=== PATIENT | female | born 1995 | race Caucasian/White ===

== ENCOUNTER 2016-08-24 23:01 | Emergency (ER) | payer SELFPAY ==
--- NOTE | 2016-08-25 01:01 | ED ORDER SUMMARY ---
..... Patient: TRISTIN WESLEY OrderSheet [facility] VisitID: [id number] [address] [place] [address] 21y, F Registration Date/Time: 08/24/2016 ORDER SHEET Weight: 90.7 kg (stated) Allergies: Ibuprofen GENERAL ORDERS: UA-Culture if indicated Urgent (23:27 08/24/2016 SBalde R.N. per protocol) (Ack 23:27 AMcQuoid ER Tech1) (1:09 SBalde R.N.) Urine Urgent (23:08/24/2016 SBalde R.N. per protocol) (Ack 23:27 AMcQuoid ER Tech1) (1:09 SBalde R.N.) Urine Drug Screen Urgent (:08/24/2016 SBalde R.N. per protocol) (Ack 23:28 AMcQuoid ER Tech1) (1:09 SBalde R.N.) Blood Culture (No) (N/A) Urgent (23:39 08/24/2016 Karen LEE) (Ack 23:41 AMcQuoid ER Tech1) (1:09 SBalde R.N.) CBC w Diff Urgent (23:40 08/24/2016 Karen LEE) (Ack 23:41 AMcQuoid ER Tech1) (0:00 AMcQuoid ER Tech1) CMP Urgent (23:40 08/24/2016 Karen LEE) (Ack 23:41 AMcQuoid ER Tech1) (0:00 AMcQuoid ER Tech1) Amylase Urgent (23:40 08/24/2016 Karen LEE) (Ack 23:41 AMcQuoid ER Tech1) (0:00 AMcQuoid ER Tech1) Lipase Urgent (23:40 08/24/2016 Karen LEE) (Ack 23:41 AMcQuoid ER Tech1) (0:00 AMcQuoid ER Tech1) Lactate, Serum Urgent (23:40 08/24/2016 Karen LEE) (Ack 23:41 AMcQuoid ER Tech1) (0:00 AMcQuoid ER Tech1) MEDICATION ORDERS: Levofloxacin PO 750 mg (NOW) (00:59 08/25/2016 Karen LEE) (1:09 Dyan Brady) IV FLUIDS: IV NS : initial bolus 1000 mL (1000 mL/hr), then 150 mL/hr for 4h (NOW); Urgent (23:39 08/24/2016 Karen LEE) (0:05 Dyan R.NMingo) ORDER SHEET NOTES: [Electronically signed by Xiomara Delacruz R.N. (01:16 08/25/2016)] [Electronically signed by Anthony Velez MD (09:23 08/25/2016)] [Electronically locked/signed by Xiomara Delacruz R.N. (01:16 08/25/2016)]
--- NOTE | 2016-08-25 01:01 | ED ORDER SUMMARY ---
..... Patient: TRISTIN WESLEY OrderSheet [facility] VisitID: [id number] [address] [place] [address] 21y, F Registration Date/Time: 08/24/2016 ORDER SHEET Weight: 90.7 kg (stated) Allergies: Ibuprofen GENERAL ORDERS: UA-Culture if indicated Urgent (23:27 08/24/2016 SBalde R.N. per protocol) (Ack 23:27 AMcQuoid ER Tech1) (1:09 SBalde R.N.) Urine Urgent (23:08/24/2016 SBalde R.N. per protocol) (Ack 23:27 AMcQuoid ER Tech1) (1:09 SBalde R.N.) Urine Drug Screen Urgent (:08/24/2016 SBalde R.N. per protocol) (Ack 23:28 AMcQuoid ER Tech1) (1:09 SBalde R.N.) Blood Culture (No) (N/A) Urgent (23:39 08/24/2016 Karen LEE) (Ack 23:41 AMcQuoid ER Tech1) (1:09 SBalde R.N.) CBC w Diff Urgent (23:40 08/24/2016 Karen LEE) (Ack 23:41 AMcQuoid ER Tech1) (0:00 AMcQuoid ER Tech1) CMP Urgent (23:40 08/24/2016 Karen LEE) (Ack 23:41 AMcQuoid ER Tech1) (0:00 AMcQuoid ER Tech1) Amylase Urgent (23:40 08/24/2016 Karen LEE) (Ack 23:41 AMcQuoid ER Tech1) (0:00 AMcQuoid ER Tech1) Lipase Urgent (23:40 08/24/2016 Karen LEE) (Ack 23:41 AMcQuoid ER Tech1) (0:00 AMcQuoid ER Tech1) Lactate, Serum Urgent (23:40 08/24/2016 Karen LEE) (Ack 23:41 AMcQuoid ER Tech1) (0:00 AMcQuoid ER Tech1) MEDICATION ORDERS: Levofloxacin PO 750 mg (NOW) (00:59 08/25/2016 Karen LEE) (1:09 Dyan Brady) IV FLUIDS: IV NS : initial bolus 1000 mL (1000 mL/hr), then 150 mL/hr for 4h (NOW); Urgent (23:39 08/24/2016 Karen LEE) (0:05 Dyan R.NMingo) ORDER SHEET NOTES: [Electronically signed by Xiomara Delacruz R.N. (01:16 08/25/2016)] [Electronically signed by Anthony Velez MD (09:23 08/25/2016)] [Electronically locked/signed by Xiomara Delacruz R.N. (01:16 08/25/2016)]
--- NOTE | 2016-08-25 01:01 | ED CLINICAL REPORT ---
Clinical Report - Physicians/Mid Levels [facility] [address] [place] [address] 08/24/2016 23:03 Patient: TRISTIN WESLEY Time Seen: 23:40. Arrived- By private vehicle. Historian- patient. HISTORY OF PRESENT ILLNESS Chief Complaint: FEVER. This started today and is still present. Fever was gradual in onset and has been intermittent. The patient has had muscle aches. No chest pain, dyspnea or cough. Additional history - she reports that today when she urinated she saw blood in the urine. REVIEW OF SYSTEMS The patient has had fever, chills, nausea and mild vomiting. No blood-tinged emesis or coffee-grounds emesis and experienced sweats. No calf pain, chest pain, cough, difficulty breathing or pedal edema. No palpitations. The patient has had urinary problems (blood in her urine today). She has had mild mid back pain (Left sided). All systems otherwise negative, except as recorded above. PAST HISTORY Problems: Self-Mutilation. Substance Abuse. Additional Surgeries: Left Leg Sx. Medications: Tylenol Oral. Allergies: Ibuprofen. (headache and body hurts, can take other NSAIDS). SOCIAL HISTORY Current every day heavy tobacco smoker (cigarette)- less than 1 pack per day. History of drug use. Is a recovering addict. No alcohol use. FAMILY HISTORY Denies family medical history. ADDITIONAL NOTES The nursing notes have been reviewed. PHYSICAL EXAM Vital Signs: 08/24/2016 23:12 BP: 139/82. HR: 78. RR: 18. O2 saturation: 100%. Temp: 102.1 F. Have been reviewed. Appearance: Alert. Eyes: Pupils equal, round and reactive to light. ENT: Pharynx normal. Uvula midline. Neck: Normal inspection. Neck supple. CVS: Normal heart rate and rhythm. Heart sounds normal. Respiratory: No respiratory distress. Breath sounds normal. Abdomen: Soft and nontender. Bowel sounds normal. No organomegaly. No mass. Obese. Back: Mild tenderness in the left costovertebral angle. Skin: Skin warm and dry. Normal skin color. Normal skin turgor. Extremities: Extremities exhibit normal ROM. LABS, X-RAYS, AND EKG Laboratory Tests: UA-Culture if indicated: (JOSH: 08/24/2016 00:13) ( [facility] 08/25/2016 00:33) Final results Test Result Flag Units (Reference) URINE COLOR YELLOW URINE APPEARANCE CLEAR URINE GLUCOSE NEGATIVE (NEGATIVE) URINE BILIRUBIN NEGATIVE (NEGATIVE) URINE KETONE NEGATIVE (NEGATIVE) URINE SPECIFIC GRAVITY 1.025 (1.010-1.030) URINE PH 6.0 (5.0-8.0) URINE PROTEIN TRACE (NEGATIVE) URINE UROBILINOGEN 0.2 EU/dL (0.2-1.0) URINE NITRITE NEGATIVE (NEGATIVE) URINE BLOOD 1+ (NEGATIVE) URINE LEUK ESTERASE POSITIVE (NEGATIVE) URINE RBC 1-3 rbc/hpf (0-1) URINE WBC 10-15 wbc/hpf (0-1) URINE EPITHELIAL CELLS 10-15 EPI/hpf (0-5) URINE BACTERIA FEW (1+) (NONE SEEN) URINE COMMENT CULTURE INDICATED URINE CULTURES ARE SET-UP BASED ON THE FOLLOWING CRITERIA:POSITIVE NITRITEPOSITIVE LEUKOCYTE ESTERASEGREATER THAN 10 WHITE BLOOD CELLSMODERATE (2+) OR GREATER BACTERIA Urine: (JOSH: 08/24/2016 00:13) ( [facility] 08/25/2016 00:28) Final results Test Result Flag Units (Reference) URINE NEGATIVE CBC w Diff: (JOSH: 08/24/2016 23:57) ( [facility] 08/25/2016 00:23) Final results Test Result Flag Units (Reference) WHITE BLOOD COUNT 13.9 H K/uL (4.5-11.5) RED BLOOD COUNT 5.16 M/uL (4.00-5.20) HEMOGLOBIN 12.3 gm/dL (12.0-16.0) HEMATOCRIT 38.3 % (36.0-46.0) MEAN CELL VOLUME 74 L fL (80-100) MEAN CORPUSCULAR HGB 24 L pg (26-34) MEAN CORPUSCULAR HGB CONC 32 g/dL (31-37) RED CELL DISTRIBUTION WIDTH 16.1 H % (11.6-14.8) PLATELET COUNT 402 H K/uL (150-400) NEUTROPHIL % 72.6 % (50-75) LYMPH % 15.4 L % (25-40) MONO % 11.5 % (3-14) EOSINOPHIL % 0.2 % (0-4) BASOPHIL % 0.3 % (0-2) Lactate, Serum: (JOSH: 08/24/2016 23:57) ( MsgRcvd 08/25/2016 00:36) Final results Test Result Flag Units (Reference) LACTIC ACID 0.8 mmol/L (0.4-2.0) CMP: (JOSH: 08/24/2016 23:57) ( MsgRcvd 08/25/2016 00:36) Final results Test Result Flag Units (Reference) GLUCOSE 101 mg/dL (70-110) BUN 11 mg/dL (7-18) CREATININE 0.9 mg/dL (0.6-1.3) Estimated GFR >60 mL/min Estimated GFR- >60 mL/min Note: Persistent reduction over 3 months in eGFR<60 mL/min/1.73 m2 defines CKD. Patients with eGFR values>=60 mL/min/1.73 m2 may also have CKD if evidence ofpersistent proteinuria. Additional information may be foundat www.kidney.org. SODIUM 138 mmol/L (136-145) POTASSIUM 3.6 mmol/L (3.5-5.1) CHLORIDE 101 mmol/L (98-107) CARBON DIOXIDE 25 mmol/L (21-32) CALCIUM 8.7 mg/dL (8.5-10.1) TOTAL PROTEIN 7.8 g/dL (6.4-8.2) ALBUMIN 3.6 g/dL (3.3-5.0) BILIRUBIN, TOTAL 0.3 mg/dL (0.0-1.0) ALKALINE PHOSPHATASE 101 U/L (46-116) AST (SGOT) 18 U/L (15-37) ALT (SGPT) 24 U/L (12-78) LIPASE 85 U/L (73-393) AMYLASE 33 U/L (25-115) . PROGRESS AND PROCEDURES Course of Care: Patient is stable. Patient/family counseled. Old medical records ordered. Old records unavailable. Disposition: Discharged. Condition: stable. CLINICAL IMPRESSION Acute pyelonephritis INSTRUCTIONS No driving or operating machinery while taking medication. Drink plenty of fluids. Warnings: Further evaluation is necessary. GENERAL WARNINGS: Return or contact your physician immediately if your condition worsens or changes unexpectedly, if not improving as expected, or if other problems arise. Prescription Medications: Zofran 4 mg: Take 1 orally every six hours as needed for nausea/vomiting. Dispense ten (10). No refills. Substitution is permissible. Ultram 50 mg: take 1-2 orally every 6 hours as needed for pain. Dispense fifteen (15). No refills. Substitution is permissible. Cipro 500 mg: take 1 tab orally every 12 hours for 10 days. No refills. Substitution is permissible. (18 pills to finish the course started in the ER) OTC Medications: Acetaminophen (available over the counter): take according to label instructions. Understanding of the discharge instructions verbalized by patient. Follow-up with: [facility], , , [address], , [place], [address] Follow up tomorrow. Call for an appointment. (Electronically signed by Anthony Velez MD 08/25/2016 9:23)
--- NOTE | 2016-08-25 01:01 | ED CLINICAL REPORT ---
Clinical Report - Physicians/Mid Levels [facility] [address] [place] [address] 08/24/2016 23:03 Patient: TRISTIN WESLEY Time Seen: 23:40. Arrived- By private vehicle. Historian- patient. HISTORY OF PRESENT ILLNESS Chief Complaint: FEVER. This started today and is still present. Fever was gradual in onset and has been intermittent. The patient has had muscle aches. No chest pain, dyspnea or cough. Additional history - she reports that today when she urinated she saw blood in the urine. REVIEW OF SYSTEMS The patient has had fever, chills, nausea and mild vomiting. No blood-tinged emesis or coffee-grounds emesis and experienced sweats. No calf pain, chest pain, cough, difficulty breathing or pedal edema. No palpitations. The patient has had urinary problems (blood in her urine today). She has had mild mid back pain (Left sided). All systems otherwise negative, except as recorded above. PAST HISTORY Problems: Self-Mutilation. Substance Abuse. Additional Surgeries: Left Leg Sx. Medications: Tylenol Oral. Allergies: Ibuprofen. (headache and body hurts, can take other NSAIDS). SOCIAL HISTORY Current every day heavy tobacco smoker (cigarette)- less than 1 pack per day. History of drug use. Is a recovering addict. No alcohol use. FAMILY HISTORY Denies family medical history. ADDITIONAL NOTES The nursing notes have been reviewed. PHYSICAL EXAM Vital Signs: 08/24/2016 23:12 BP: 139/82. HR: 78. RR: 18. O2 saturation: 100%. Temp: 102.1 F. Have been reviewed. Appearance: Alert. Eyes: Pupils equal, round and reactive to light. ENT: Pharynx normal. Uvula midline. Neck: Normal inspection. Neck supple. CVS: Normal heart rate and rhythm. Heart sounds normal. Respiratory: No respiratory distress. Breath sounds normal. Abdomen: Soft and nontender. Bowel sounds normal. No organomegaly. No mass. Obese. Back: Mild tenderness in the left costovertebral angle. Skin: Skin warm and dry. Normal skin color. Normal skin turgor. Extremities: Extremities exhibit normal ROM. LABS, X-RAYS, AND EKG Laboratory Tests: UA-Culture if indicated: (JOSH: 08/24/2016 00:13) ( [facility] 08/25/2016 00:33) Final results Test Result Flag Units (Reference) URINE COLOR YELLOW URINE APPEARANCE CLEAR URINE GLUCOSE NEGATIVE (NEGATIVE) URINE BILIRUBIN NEGATIVE (NEGATIVE) URINE KETONE NEGATIVE (NEGATIVE) URINE SPECIFIC GRAVITY 1.025 (1.010-1.030) URINE PH 6.0 (5.0-8.0) URINE PROTEIN TRACE (NEGATIVE) URINE UROBILINOGEN 0.2 EU/dL (0.2-1.0) URINE NITRITE NEGATIVE (NEGATIVE) URINE BLOOD 1+ (NEGATIVE) URINE LEUK ESTERASE POSITIVE (NEGATIVE) URINE RBC 1-3 rbc/hpf (0-1) URINE WBC 10-15 wbc/hpf (0-1) URINE EPITHELIAL CELLS 10-15 EPI/hpf (0-5) URINE BACTERIA FEW (1+) (NONE SEEN) URINE COMMENT CULTURE INDICATED URINE CULTURES ARE SET-UP BASED ON THE FOLLOWING CRITERIA:POSITIVE NITRITEPOSITIVE LEUKOCYTE ESTERASEGREATER THAN 10 WHITE BLOOD CELLSMODERATE (2+) OR GREATER BACTERIA Urine: (JOSH: 08/24/2016 00:13) ( [facility] 08/25/2016 00:28) Final results Test Result Flag Units (Reference) URINE NEGATIVE CBC w Diff: (JOSH: 08/24/2016 23:57) ( [facility] 08/25/2016 00:23) Final results Test Result Flag Units (Reference) WHITE BLOOD COUNT 13.9 H K/uL (4.5-11.5) RED BLOOD COUNT 5.16 M/uL (4.00-5.20) HEMOGLOBIN 12.3 gm/dL (12.0-16.0) HEMATOCRIT 38.3 % (36.0-46.0) MEAN CELL VOLUME 74 L fL (80-100) MEAN CORPUSCULAR HGB 24 L pg (26-34) MEAN CORPUSCULAR HGB CONC 32 g/dL (31-37) RED CELL DISTRIBUTION WIDTH 16.1 H % (11.6-14.8) PLATELET COUNT 402 H K/uL (150-400) NEUTROPHIL % 72.6 % (50-75) LYMPH % 15.4 L % (25-40) MONO % 11.5 % (3-14) EOSINOPHIL % 0.2 % (0-4) BASOPHIL % 0.3 % (0-2) Lactate, Serum: (JOSH: 08/24/2016 23:57) ( MsgRcvd 08/25/2016 00:36) Final results Test Result Flag Units (Reference) LACTIC ACID 0.8 mmol/L (0.4-2.0) CMP: (JOSH: 08/24/2016 23:57) ( MsgRcvd 08/25/2016 00:36) Final results Test Result Flag Units (Reference) GLUCOSE 101 mg/dL (70-110) BUN 11 mg/dL (7-18) CREATININE 0.9 mg/dL (0.6-1.3) Estimated GFR >60 mL/min Estimated GFR- >60 mL/min Note: Persistent reduction over 3 months in eGFR<60 mL/min/1.73 m2 defines CKD. Patients with eGFR values>=60 mL/min/1.73 m2 may also have CKD if evidence ofpersistent proteinuria. Additional information may be foundat www.kidney.org. SODIUM 138 mmol/L (136-145) POTASSIUM 3.6 mmol/L (3.5-5.1) CHLORIDE 101 mmol/L (98-107) CARBON DIOXIDE 25 mmol/L (21-32) CALCIUM 8.7 mg/dL (8.5-10.1) TOTAL PROTEIN 7.8 g/dL (6.4-8.2) ALBUMIN 3.6 g/dL (3.3-5.0) BILIRUBIN, TOTAL 0.3 mg/dL (0.0-1.0) ALKALINE PHOSPHATASE 101 U/L (46-116) AST (SGOT) 18 U/L (15-37) ALT (SGPT) 24 U/L (12-78) LIPASE 85 U/L (73-393) AMYLASE 33 U/L (25-115) . PROGRESS AND PROCEDURES Course of Care: Patient is stable. Patient/family counseled. Old medical records ordered. Old records unavailable. Disposition: Discharged. Condition: stable. CLINICAL IMPRESSION Acute pyelonephritis INSTRUCTIONS No driving or operating machinery while taking medication. Drink plenty of fluids. Warnings: Further evaluation is necessary. GENERAL WARNINGS: Return or contact your physician immediately if your condition worsens or changes unexpectedly, if not improving as expected, or if other problems arise. Prescription Medications: Zofran 4 mg: Take 1 orally every six hours as needed for nausea/vomiting. Dispense ten (10). No refills. Substitution is permissible. Ultram 50 mg: take 1-2 orally every 6 hours as needed for pain. Dispense fifteen (15). No refills. Substitution is permissible. Cipro 500 mg: take 1 tab orally every 12 hours for 10 days. No refills. Substitution is permissible. (18 pills to finish the course started in the ER) OTC Medications: Acetaminophen (available over the counter): take according to label instructions. Understanding of the discharge instructions verbalized by patient. Follow-up with: [facility], , , [address], , [place], [address] Follow up tomorrow. Call for an appointment. (Electronically signed by Anthony Velez MD 08/25/2016 9:23)
--- NOTE | 2016-08-25 01:01 | ED NURSING NOTES ---
Clinical Report - Nurses [facility] [address] [place] [address] 08/24/2016 23:03 Patient: TRISTIN WESLEY TRIAGE Triage time 23:13 Aug 24 2016. Acuity: LEVEL 3. Chief Complaint: PAINFUL URINATION. Alert. No acute distress. --23:26 Xiomara Delacruz R.N. 23:12 08/24/16. BP: 139/82. HR: 78. RR: 18. O2 saturation: 100%. Temp: 102.1 F. Pain level now 01/07. --23:26 Xiomaar Delacruz R.N. Weight: 90.7 kg stated. Height/Length: 64 inches Per Patient. BMI: 34.3. --23:12 Xiomara Delacruz R.N. Medications Tylenol Oral. --23:15 Xiomara Delacruz R.N. Medication/allergy information source: the patient. --23:26 Xiomara Delacruz R.N. Allergies Ibuprofen. (headache and body hurts, can take other NSAIDS) --23:16 Xiomara Delacruz R.N. History Arrived by private vehicle. Historian: patient. Primary physician (PROV). ( Pt is currently A0. Couple days of "overall muscle body aches, peeing blood x1 in 24 hours, nausea, some vomiting, no appetite, taking Tylenol PRN. Pt is febrile. Pt is concerned if she may had a miscarriage or just sick.). Onset. ("couple days"). She has had hematuria. Treatment [employer]: Took Tylenol. PAST MEDICAL HX: Last normal menstrual period- April 2016. 3. Para 2. Sexual history - sexually active. No contraception. Currently . SOCIAL HX: Heavy tobacco smoker (cigarette)- less than 1 pack per day. Alcohol use. (last drink was 5-6 months ago). 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 (clean for 4 years). FALL RISK ASSESSMENT: Fall risk assessment completed. No fall risk identified. NUTRITIONAL RISK ASSESSMENT: The nutritional risk assessment revealed no deficiencies. FUNCTIONAL ASSESSMENT: Functional assessment: no impairments noted. LEARNING NEEDS ASSESSMENT: The learning needs assessment revealed no barriers. SKIN INTEGRITY ASSESSMENT: Skin integrity risk assessment completed. No skin integrity risk identified. --23:26 Xiomara Delacruz R.N. PROBLEMS: Self-Mutilation. Substance Abuse. --23:20 Xiomara Delacruz R.N. ADDITIONAL SURGERIES: Left Leg Sx. --23:17 Xiomara Delacruz R.N. Interventions ID band on patient. To room. --23:26 Xiomara Delacruz R.N. NURSING PROGRESS NOTES 00:02 08/25/2016 Site #1 started via IV in the right antecubital space with an 18g angiocath, with aseptic technique and good blood return; one attempt. Blood drawn: rainbow set and cultures x1. Labeled in the presence of the patient and sent to the lab. Saline lock flushed (Lactate also.). --00:02 Xiomara Delacruz R.N. ( pt encouraged twice to use the bathroom.). --00:02 Xiomara Delacruz R.N. 00:04 08/25/2016 Started bag #1 1000 mL IV Fluids IV NS (Saline); at 1000 mL/hr over 1 hour(s) via site #1. Completed per protocol. --00:05 Xiomara Delacruz R.N. Clean catch urine collected; sample sent to lab for urinalysis. Specimen labeled in the presence of the patient. --00:30 Xiomara Delacruz R.N. Patient gowned. Reassurance given. Call light placed in reach. Side rails up x 1. Bed placed in lowest position. Brakes of bed on. ( Friend at bedside. Pt has been told that only 1 person at a time in the ER.). --00:31 Xiomara Delacruz R.N. ( Provider at bedside.). --00:56 Xiomara Delacruz R.N. 01:09 08/25/2016 Levofloxacin PO 750 mg given. Allergies verified and confirmed 5 rights. --01:09 Xiomara Delacruz R.N. ( Pt informed that she has Pyonephritis. Discussed hydration and ABX. Tylenol and nausea medicine. Pt verbalizes an understanding.). --01:11 Xiomara Delacruz R.N. 01:11 08/25/16. BP: 139/82. HR: 96. RR: 18. O2 saturation: 100%. --01:12 Xiomara Delacruz R.N. DISPOSITION / DISCHARGE Departure time: 01:Aug 25 2016. --01:13 Xiomara Delacruz R.N. 01:12 08/25/16. BP: 139/82. HR: 96. RR: 18. O2 saturation: 100%. Temp: 101.9 F. Pain level now 08/07. --01:13 Xiomara Delacruz R.N. Condition at departure: improved and stable. No learning barriers present. Discharge instructions provided and reviewed with the patient. Reviewed medication(s). Patient verbalized understanding. Written instructions provided in Turkmen. The patient was discharged by the physician. She was discharged home. She left the Emergency Department ambulatory and via private vehicle. Patient driving. --01:16 Xiomara Delacruz R.N. 01:16 08/25/2016 Site #1 removed upon discharge. Bandage applied. --01:16 Xiomara Delacruz R.N. Locked/Released at 08/25/2016 1:16 by Xiomara Delacruz R.N.
--- NOTE | 2016-08-25 09:24 | ED DISCHARGE INSTRUCTIONS ---
Patient: TRISTIN WESLEY General Instructions [facility] VisitID: [id number] [address] [place] [address] 21y, F Registration Date/Time: 08/24/2016 Acute pyelonephritis INSTRUCTIONS No driving or operating machinery while taking medication. Drink plenty of fluids. Warnings: Further evaluation is necessary. GENERAL WARNINGS: Return or contact your physician immediately if your condition worsens or changes unexpectedly, if not improving as expected, or if other problems arise. Prescription Medications: Zofran 4 mg: Take 1 orally every six hours as needed for nausea/vomiting. Dispense ten (10). No refills. Substitution is permissible. Ultram 50 mg: take 1-2 orally every 6 hours as needed for pain. Dispense fifteen (15). No refills. Substitution is permissible. Cipro 500 mg: take 1 tab orally every 12 hours for 10 days. No refills. Substitution is permissible. (18 pills to finish the course started in the ER) OTC Medications: Acetaminophen (available over the counter): take according to label instructions. Understanding of the discharge instructions verbalized by patient. Follow-up with: [facility], , , [address], [place], [address] Follow up tomorrow. Call for an appointment. ADDITIONAL INFORMATION Kidney Infection [Adult, Female] An infection of the kidney is also called "pyelonephritis". It usually starts as a bladder infection ("cystitis") which spreads to the kidneys. Pyelonephritis is more serious than a bladder infection. It can cause severe illness if not treated properly. The usual symptoms include an aching pain in the back, side or lower abdomen. Other symptoms may include fever, chills, nausea, vomiting, an urge to urinate and a burning sensation when passing urine. Home Care: Stay home from work or school. Rest in bed until your fever breaks and you are feeling better. Drink lots of fluid (at least 6-8 glasses a day, unless you must restrict fluids for other medical reasons). This will force the medicine into your urinary system and flush the bacteria out of your body. Avoid sexual intercourse until you have finished all of your medicine and your symptoms have gone away. Avoid caffeine, alcohol and spicy foods which may irritate the kidney and bladder. You may use acetaminophen (Tylenol) or ibuprofen (Motrin, Advil) to control pain, unless another pain medicine was prescribed. [NOTE: If you have chronic liver or kidney disease or ever had a stomach ulcer or GI bleeding, talk with your doctor before using these medicines.] Follow Up with your doctor or as advised by our staff for a repeat urine test in 10 days. This will ensure that your infection is fully cleared. [NOTE: If you had an X-ray or CT scan, it will be reviewed by a specialist. You will be notified of any new findings that may affect your care.] Get Prompt Medical Attention if any of the following occur: Fever over 100.4F (38.0C) after 48 hours of treatment No improvement by the third day of treatment Increasing back or abdominal pain Repeated vomiting or inability to take oral medicine Weakness, dizziness or fainting Ondansetron Oral disintegrating tablet What is this medicine? ONDANSETRON (on MEI se roly) is used to treat nausea and vomiting caused by chemotherapy. It is also used to prevent or treat nausea and vomiting after surgery. How should I use this medicine? These tablets are made to dissolve in the mouth. Do not try to push the tablet through the foil backing. With dry hands, peel away the foil backing and gently remove the tablet. Place the tablet in the mouth and allow it to dissolve, then swallow. While you may take these tablets with water, it is not necessary to do so. Talk to your live ammunition inspector regarding the use of this medicine in children. Special care may be needed. What side effects may I notice from receiving this medicine? Side effects that you should report to your doctor or health senior care assistant as soon as possible: allergic reactions like skin rash, itching or hives, swelling of the face, lips, or tongue breathing problems dizziness fast or irregular heartbeat feeling faint or lightheaded, falls fever and chills swelling of the hands and feet tightness in the chest Side effects that usually do not require medical attention (report to your doctor or health senior care assistant if they continue or are bothersome): constipation or diarrhea headache What may interact with this medicine? Do not take this medicine with any of the following medications: -apomorphine -cisapride -dofetilide -dronedarone -pimozide -thioridazine -ziprasidone This medicine may also interact with the following medications: -carbamazepine -phenytoin -rifampicin -tramadol -other medicines that prolong the QT interval (cause an abnormal heart rhythm) What if I miss a dose? If you miss a dose, take it as soon as you can. If it is almost time for your next dose, take only that dose. Do not take double or extra doses. Where should I keep my medicine? Keep out of the reach of children. Store between 2 and 30 degrees C (36 and 86 degrees F). Throw away any unused medicine after the expiration date. What should I tell my health care provider before I take this medicine? They need to know if you have any of these conditions: heart disease history of irregular heartbeat liver disease low levels of magnesium or potassium in the blood an unusual or allergic reaction to ondansetron, granisetron, other medicines, foods, dyes, or preservatives or trying to get breast-feeding What should I watch for while using this medicine? Check with your doctor or health senior care assistant as soon as you can if you have any sign of an allergic reaction. Tramadol Hydrochloride Oral tablet What is this medicine? TRAMADOL (TRA ma dole) is a pain reliever. It is used to treat moderate to severe pain in adults. How should I use this medicine? Take this medicine by mouth with a full glass of water. Follow the directions on the prescription label. If the medicine upsets your stomach, take it with food or milk. Do not take more medicine than you are told to take. Talk to your live ammunition inspector regarding the use of this medicine in children. Special care may be needed. What side effects may I notice from receiving this medicine? Side effects that you should report to your doctor or health senior care assistant as soon as possible: allergic reactions like skin rash, itching or hives, swelling of the face, lips, or tongue breathing difficulties, wheezing confusion itching light headedness or fainting spells redness, blistering, peeling or loosening of the skin, including inside the mouth seizures Side effects that usually do not require medical attention (report to your doctor or health senior care assistant if they continue or are bothersome): constipation dizziness drowsiness headache nausea, vomiting What may interact with this medicine? Do not take this medicine with any of the following medications: MAOIs like Carbex, Eldepryl, Marplan, Nardil, and Parnate This medicine may also interact with the following medications: alcohol or medicines that contain alcohol antihistamines benzodiazepines bupropion carbamazepine or oxcarbazepine clozapine cyclobenzaprine digoxin furazolidone linezolid medicines for depression, anxiety, or psychotic disturbances medicines for migraine headache like almotriptan, eletriptan, frovatriptan, naratriptan, rizatriptan, sumatriptan, zolmitriptan medicines for pain like pentazocine, buprenorphine, butorphanol, meperidine, nalbuphine, and propoxyphene medicines for sleep muscle relaxants naltrexone phenobarbital phenothiazines like perphenazine, thioridazine, chlorpromazine, mesoridazine, fluphenazine, prochlorperazine, promazine, and trifluoperazine procarbazine warfarin What if I miss a dose? If you miss a dose, take it as soon as you can. If it is almost time for your next dose, take only that dose. Do not take double or extra doses. Where should I keep my medicine? Keep out of the reach of children. Store at room temperature between 15 and 30 degrees C (59 and 86 degrees F). Keep container tightly closed. Throw away any unused medicine after the expiration date. What should I tell my health care provider before I take this medicine? They need to know if you have any of these conditions: brain tumor depression drug abuse or addiction head injury if you frequently drink alcohol containing drinks kidney disease or trouble passing urine liver disease lung disease, asthma, or breathing problems seizures or epilepsy suicidal thoughts, plans, or attempt; a previous suicide attempt by you or a family member an unusual or allergic reaction to tramadol, codeine, other medicines, foods, dyes, or preservatives or trying to get breast-feeding What should I watch for while using this medicine? Tell your doctor or health senior care assistant if your pain does not go away, if it gets worse, or if you have new or a different type of pain. You may develop tolerance to the medicine. Tolerance means that you will need a higher dose of the medicine for pain relief. Tolerance is normal and is expected if you take this medicine for a long time. Do not suddenly stop taking your medicine because you may develop a severe reaction. Your body becomes used to the medicine. This does NOT mean you are addicted. Addiction is a behavior related to getting and using a drug for a non-medical reason. If you have pain, you have a medical reason to take pain medicine. Your doctor will tell you how much medicine to take. If your doctor wants you to stop the medicine, the dose will be slowly lowered over time to avoid any side effects. You may get drowsy or dizzy. Do not drive, use machinery, or do anything that needs mental alertness until you know how this medicine affects you. Do not stand or sit up quickly, especially if you are an older patient. This reduces the risk of dizzy or fainting spells. Alcohol can increase or decrease the effects of this medicine. Avoid alcoholic drinks. You may have constipation. Try to have a bowel movement at least every 2 to 3 days. If you do not have a bowel movement for 3 days, call your doctor or health senior care assistant. Your mouth may get dry. Chewing sugarless gum or sucking hard candy, and drinking plenty of water may help. Contact your doctor if the problem does not go away or is severe. Ciprofloxacin Hydrochloride Oral tablet What is this medicine? CIPROFLOXACIN (sip duyen FLOX a sin) is a quinolone antibiotic. It is used to treat certain kinds of bacterial infections. It will not work for colds, flu, or other viral infections. How should I use this medicine? Take this medicine by mouth with a glass of water. Follow the directions on the prescription label. Take your medicine at regular intervals. Do not take your medicine more often than directed. Take all of your medicine as directed even if you think your are better. Do not skip doses or stop your medicine early. You can take this medicine with food or on an empty stomach. It can be taken with a meal that contains dairy or calcium, but do not take it alone with a dairy product, like milk or yogurt or calcium-fortified juice. A special MedGuide will be given to you by the pharmacist with each prescription and refill. Be sure to read this information carefully each time. Talk to your live ammunition inspector regarding the use of this medicine in children. Special care may be needed. What side effects may I notice from receiving this medicine? Side effects that you should report to your doctor or health senior care assistant as soon as possible: - allergic reactions like skin rash, itching or hives, swelling of the face, lips, or tongue - breathing problems - confusion, nightmares or hallucinations - feeling faint or lightheaded, falls - irregular heartbeat - joint, muscle or tendon pain or swelling - pain or trouble passing urine -persistent headache with or without blurred vision - redness, blistering, peeling or loosening of the skin, including inside the mouth - seizure - unusual pain, numbness, tingling, or weakness Side effects that usually do not require medical attention (report to your doctor or health senior care assistant if they continue or are bothersome): - diarrhea - nausea or stomach upset - white patches or sores in the mouth What may interact with this medicine? Do not take this medicine with any of the following medications: cisapride droperidol terfenadine tizanidine This medicine may also interact with the following medications: antacids caffeine cyclosporin didanosine (ddI) buffered tablets or powder medicines for diabetes medicines for inflammation like ibuprofen, naproxen methotrexate multivitamins omeprazole phenytoin probenecid sucralfate theophylline warfarin What if I miss a dose? If you miss a dose, take it as soon as you can. If it is almost time for your next dose, take only that dose. Do not take double or extra doses. Where should I keep my medicine? Keep out of the reach of children. Store at room temperature below 30 degrees C (86 degrees F). Keep container tightly closed. Throw away any unused medicine after the expiration date. What should I tell my health care provider before I take this medicine? They need to know if you have any of these conditions: -bone problems -cerebral disease -joint problems -irregular heartbeat -kidney disease -liver disease -myasthenia gravis -seizure disorder -tendon problems -an unusual or allergic reaction to ciprofloxacin, other antibiotics or medicines, foods, dyes, or preservatives - or trying to get -breast-feeding What should I watch for while using this medicine? Tell your doctor or health senior care assistant if your symptoms do not improve. Do not treat diarrhea with over the counter products. Contact your doctor if you have diarrhea that lasts more than 2 days or if it is severe and watery. You may get drowsy or dizzy. Do not drive, use machinery, or do anything that needs mental alertness until you know how this medicine affects you. Do not stand or sit up quickly, especially if you are an older patient. This reduces the risk of dizzy or fainting spells. This medicine can make you more sensitive to the sun. Keep out of the sun. If you cannot avoid being in the sun, wear protective clothing and use sunscreen. Do not use sun lamps or tanning beds/booths. Avoid antacids, aluminum, calcium, iron, magnesium, and zinc products for 6 hours before and 2 hours after taking a dose of this medicine. Acetaminophen Oral tablet What is this medicine? ACETAMINOPHEN (a set a BRADY en fen) is a pain reliever. It is used to treat mild pain and fever. How should I use this medicine? Take this medicine by mouth with a glass of water. Follow the directions on the package or prescription label. Take your medicine at regular intervals. Do not take your medicine more often than directed. Talk to your live ammunition inspector regarding the use of this medicine in children. While this drug may be prescribed for children as young as 6 years of age for selected conditions, precautions do apply. What side effects may I notice from receiving this medicine? Side effects that you should report to your doctor or health senior care assistant as soon as possible: allergic reactions like skin rash, itching or hives, swelling of the face, lips, or tongue breathing problems fever or sore throat redness, blistering, peeling or loosening of the skin, including inside the mouth trouble passing urine or change in the amount of urine unusual bleeding or bruising unusually weak or tired yellowing of the eyes or skin Side effects that usually do not require medical attention (report to your doctor or health senior care assistant if they continue or are bothersome): headache nausea, stomach upset What may interact with this medicine? alcohol imatinib isoniazid other medicines with acetaminophen What if I miss a dose? If you miss a dose, take it as soon as you can. If it is almost time for your next dose, take only that dose. Do not take double or extra doses. Where should I keep my medicine? Keep out of reach of children. Store at room temperature between 20 and 25 degrees C (68 and 77 degrees F). Protect from moisture and heat. Throw away any unused medicine after the expiration date. What should I tell my health care provider before I take this medicine? They need to know if you have any of these conditions: if you frequently drink alcohol containing drinks liver disease an unusual or allergic reaction to acetaminophen, other medicines, foods, dyes or preservatives or trying to get breast-feeding What should I watch for while using this medicine? Tell your doctor or health senior care assistant if the pain lasts more than 10 days (5 days for children), if it gets worse, or if there is a new or different kind of pain. Also, check with your doctor if a fever lasts for more than 3 days. Do not take other medicines that contain acetaminophen with this medicine. Always read labels carefully. If you have questions, ask your doctor or pharmacist. If you take too much acetaminophen get medical help right away. Too much acetaminophen can be very dangerous and cause liver damage. Even if you do not have symptoms, it is important to get help right away. You have been given the following additional information: Pyelonephritis, Female (Adult) Ondansetron Oral disintegrating tablet Tramadol Hydrochloride Oral tablet Ciprofloxacin Hydrochloride Oral tablet Acetaminophen Oral tablet No driving or operating machinery while taking medication. (Electronically signed by Anthony Velez MD 08/25/2016 9:23)
--- NOTE | 2016-08-25 09:24 | ED DISCHARGE INSTRUCTIONS ---
Patient: TRISTIN WESLEY General Instructions [facility] VisitID: [id number] [address] [place] [address] 21y, F Registration Date/Time: 08/24/2016 Acute pyelonephritis INSTRUCTIONS No driving or operating machinery while taking medication. Drink plenty of fluids. Warnings: Further evaluation is necessary. GENERAL WARNINGS: Return or contact your physician immediately if your condition worsens or changes unexpectedly, if not improving as expected, or if other problems arise. Prescription Medications: Zofran 4 mg: Take 1 orally every six hours as needed for nausea/vomiting. Dispense ten (10). No refills. Substitution is permissible. Ultram 50 mg: take 1-2 orally every 6 hours as needed for pain. Dispense fifteen (15). No refills. Substitution is permissible. Cipro 500 mg: take 1 tab orally every 12 hours for 10 days. No refills. Substitution is permissible. (18 pills to finish the course started in the ER) OTC Medications: Acetaminophen (available over the counter): take according to label instructions. Understanding of the discharge instructions verbalized by patient. Follow-up with: [facility], , , [address], [place], [address] Follow up tomorrow. Call for an appointment. ADDITIONAL INFORMATION Kidney Infection [Adult, Female] An infection of the kidney is also called "pyelonephritis". It usually starts as a bladder infection ("cystitis") which spreads to the kidneys. Pyelonephritis is more serious than a bladder infection. It can cause severe illness if not treated properly. The usual symptoms include an aching pain in the back, side or lower abdomen. Other symptoms may include fever, chills, nausea, vomiting, an urge to urinate and a burning sensation when passing urine. Home Care: Stay home from work or school. Rest in bed until your fever breaks and you are feeling better. Drink lots of fluid (at least 6-8 glasses a day, unless you must restrict fluids for other medical reasons). This will force the medicine into your urinary system and flush the bacteria out of your body. Avoid sexual intercourse until you have finished all of your medicine and your symptoms have gone away. Avoid caffeine, alcohol and spicy foods which may irritate the kidney and bladder. You may use acetaminophen (Tylenol) or ibuprofen (Motrin, Advil) to control pain, unless another pain medicine was prescribed. [NOTE: If you have chronic liver or kidney disease or ever had a stomach ulcer or GI bleeding, talk with your doctor before using these medicines.] Follow Up with your doctor or as advised by our staff for a repeat urine test in 10 days. This will ensure that your infection is fully cleared. [NOTE: If you had an X-ray or CT scan, it will be reviewed by a specialist. You will be notified of any new findings that may affect your care.] Get Prompt Medical Attention if any of the following occur: Fever over 100.4F (38.0C) after 48 hours of treatment No improvement by the third day of treatment Increasing back or abdominal pain Repeated vomiting or inability to take oral medicine Weakness, dizziness or fainting Ondansetron Oral disintegrating tablet What is this medicine? ONDANSETRON (on MEI se roly) is used to treat nausea and vomiting caused by chemotherapy. It is also used to prevent or treat nausea and vomiting after surgery. How should I use this medicine? These tablets are made to dissolve in the mouth. Do not try to push the tablet through the foil backing. With dry hands, peel away the foil backing and gently remove the tablet. Place the tablet in the mouth and allow it to dissolve, then swallow. While you may take these tablets with water, it is not necessary to do so. Talk to your french binding folder regarding the use of this medicine in children. Special care may be needed. What side effects may I notice from receiving this medicine? Side effects that you should report to your doctor or health critical care unit nurse as soon as possible: allergic reactions like skin rash, itching or hives, swelling of the face, lips, or tongue breathing problems dizziness fast or irregular heartbeat feeling faint or lightheaded, falls fever and chills swelling of the hands and feet tightness in the chest Side effects that usually do not require medical attention (report to your doctor or health critical care unit nurse if they continue or are bothersome): constipation or diarrhea headache What may interact with this medicine? Do not take this medicine with any of the following medications: -apomorphine -cisapride -dofetilide -dronedarone -pimozide -thioridazine -ziprasidone This medicine may also interact with the following medications: -carbamazepine -phenytoin -rifampicin -tramadol -other medicines that prolong the QT interval (cause an abnormal heart rhythm) What if I miss a dose? If you miss a dose, take it as soon as you can. If it is almost time for your next dose, take only that dose. Do not take double or extra doses. Where should I keep my medicine? Keep out of the reach of children. Store between 2 and 30 degrees C (36 and 86 degrees F). Throw away any unused medicine after the expiration date. What should I tell my health care provider before I take this medicine? They need to know if you have any of these conditions: heart disease history of irregular heartbeat liver disease low levels of magnesium or potassium in the blood an unusual or allergic reaction to ondansetron, granisetron, other medicines, foods, dyes, or preservatives or trying to get breast-feeding What should I watch for while using this medicine? Check with your doctor or health critical care unit nurse as soon as you can if you have any sign of an allergic reaction. Tramadol Hydrochloride Oral tablet What is this medicine? TRAMADOL (TRA ma dole) is a pain reliever. It is used to treat moderate to severe pain in adults. How should I use this medicine? Take this medicine by mouth with a full glass of water. Follow the directions on the prescription label. If the medicine upsets your stomach, take it with food or milk. Do not take more medicine than you are told to take. Talk to your french binding folder regarding the use of this medicine in children. Special care may be needed. What side effects may I notice from receiving this medicine? Side effects that you should report to your doctor or health critical care unit nurse as soon as possible: allergic reactions like skin rash, itching or hives, swelling of the face, lips, or tongue breathing difficulties, wheezing confusion itching light headedness or fainting spells redness, blistering, peeling or loosening of the skin, including inside the mouth seizures Side effects that usually do not require medical attention (report to your doctor or health critical care unit nurse if they continue or are bothersome): constipation dizziness drowsiness headache nausea, vomiting What may interact with this medicine? Do not take this medicine with any of the following medications: MAOIs like Carbex, Eldepryl, Marplan, Nardil, and Parnate This medicine may also interact with the following medications: alcohol or medicines that contain alcohol antihistamines benzodiazepines bupropion carbamazepine or oxcarbazepine clozapine cyclobenzaprine digoxin furazolidone linezolid medicines for depression, anxiety, or psychotic disturbances medicines for migraine headache like almotriptan, eletriptan, frovatriptan, naratriptan, rizatriptan, sumatriptan, zolmitriptan medicines for pain like pentazocine, buprenorphine, butorphanol, meperidine, nalbuphine, and propoxyphene medicines for sleep muscle relaxants naltrexone phenobarbital phenothiazines like perphenazine, thioridazine, chlorpromazine, mesoridazine, fluphenazine, prochlorperazine, promazine, and trifluoperazine procarbazine warfarin What if I miss a dose? If you miss a dose, take it as soon as you can. If it is almost time for your next dose, take only that dose. Do not take double or extra doses. Where should I keep my medicine? Keep out of the reach of children. Store at room temperature between 15 and 30 degrees C (59 and 86 degrees F). Keep container tightly closed. Throw away any unused medicine after the expiration date. What should I tell my health care provider before I take this medicine? They need to know if you have any of these conditions: brain tumor depression drug abuse or addiction head injury if you frequently drink alcohol containing drinks kidney disease or trouble passing urine liver disease lung disease, asthma, or breathing problems seizures or epilepsy suicidal thoughts, plans, or attempt; a previous suicide attempt by you or a family member an unusual or allergic reaction to tramadol, codeine, other medicines, foods, dyes, or preservatives or trying to get breast-feeding What should I watch for while using this medicine? Tell your doctor or health critical care unit nurse if your pain does not go away, if it gets worse, or if you have new or a different type of pain. You may develop tolerance to the medicine. Tolerance means that you will need a higher dose of the medicine for pain relief. Tolerance is normal and is expected if you take this medicine for a long time. Do not suddenly stop taking your medicine because you may develop a severe reaction. Your body becomes used to the medicine. This does NOT mean you are addicted. Addiction is a behavior related to getting and using a drug for a non-medical reason. If you have pain, you have a medical reason to take pain medicine. Your doctor will tell you how much medicine to take. If your doctor wants you to stop the medicine, the dose will be slowly lowered over time to avoid any side effects. You may get drowsy or dizzy. Do not drive, use machinery, or do anything that needs mental alertness until you know how this medicine affects you. Do not stand or sit up quickly, especially if you are an older patient. This reduces the risk of dizzy or fainting spells. Alcohol can increase or decrease the effects of this medicine. Avoid alcoholic drinks. You may have constipation. Try to have a bowel movement at least every 2 to 3 days. If you do not have a bowel movement for 3 days, call your doctor or health critical care unit nurse. Your mouth may get dry. Chewing sugarless gum or sucking hard candy, and drinking plenty of water may help. Contact your doctor if the problem does not go away or is severe. Ciprofloxacin Hydrochloride Oral tablet What is this medicine? CIPROFLOXACIN (sip duyen FLOX a sin) is a quinolone antibiotic. It is used to treat certain kinds of bacterial infections. It will not work for colds, flu, or other viral infections. How should I use this medicine? Take this medicine by mouth with a glass of water. Follow the directions on the prescription label. Take your medicine at regular intervals. Do not take your medicine more often than directed. Take all of your medicine as directed even if you think your are better. Do not skip doses or stop your medicine early. You can take this medicine with food or on an empty stomach. It can be taken with a meal that contains dairy or calcium, but do not take it alone with a dairy product, like milk or yogurt or calcium-fortified juice. A special MedGuide will be given to you by the pharmacist with each prescription and refill. Be sure to read this information carefully each time. Talk to your french binding folder regarding the use of this medicine in children. Special care may be needed. What side effects may I notice from receiving this medicine? Side effects that you should report to your doctor or health critical care unit nurse as soon as possible: - allergic reactions like skin rash, itching or hives, swelling of the face, lips, or tongue - breathing problems - confusion, nightmares or hallucinations - feeling faint or lightheaded, falls - irregular heartbeat - joint, muscle or tendon pain or swelling - pain or trouble passing urine -persistent headache with or without blurred vision - redness, blistering, peeling or loosening of the skin, including inside the mouth - seizure - unusual pain, numbness, tingling, or weakness Side effects that usually do not require medical attention (report to your doctor or health critical care unit nurse if they continue or are bothersome): - diarrhea - nausea or stomach upset - white patches or sores in the mouth What may interact with this medicine? Do not take this medicine with any of the following medications: cisapride droperidol terfenadine tizanidine This medicine may also interact with the following medications: antacids caffeine cyclosporin didanosine (ddI) buffered tablets or powder medicines for diabetes medicines for inflammation like ibuprofen, naproxen methotrexate multivitamins omeprazole phenytoin probenecid sucralfate theophylline warfarin What if I miss a dose? If you miss a dose, take it as soon as you can. If it is almost time for your next dose, take only that dose. Do not take double or extra doses. Where should I keep my medicine? Keep out of the reach of children. Store at room temperature below 30 degrees C (86 degrees F). Keep container tightly closed. Throw away any unused medicine after the expiration date. What should I tell my health care provider before I take this medicine? They need to know if you have any of these conditions: -bone problems -cerebral disease -joint problems -irregular heartbeat -kidney disease -liver disease -myasthenia gravis -seizure disorder -tendon problems -an unusual or allergic reaction to ciprofloxacin, other antibiotics or medicines, foods, dyes, or preservatives - or trying to get -breast-feeding What should I watch for while using this medicine? Tell your doctor or health critical care unit nurse if your symptoms do not improve. Do not treat diarrhea with over the counter products. Contact your doctor if you have diarrhea that lasts more than 2 days or if it is severe and watery. You may get drowsy or dizzy. Do not drive, use machinery, or do anything that needs mental alertness until you know how this medicine affects you. Do not stand or sit up quickly, especially if you are an older patient. This reduces the risk of dizzy or fainting spells. This medicine can make you more sensitive to the sun. Keep out of the sun. If you cannot avoid being in the sun, wear protective clothing and use sunscreen. Do not use sun lamps or tanning beds/booths. Avoid antacids, aluminum, calcium, iron, magnesium, and zinc products for 6 hours before and 2 hours after taking a dose of this medicine. Acetaminophen Oral tablet What is this medicine? ACETAMINOPHEN (a set a BRADY en fen) is a pain reliever. It is used to treat mild pain and fever. How should I use this medicine? Take this medicine by mouth with a glass of water. Follow the directions on the package or prescription label. Take your medicine at regular intervals. Do not take your medicine more often than directed. Talk to your french binding folder regarding the use of this medicine in children. While this drug may be prescribed for children as young as 6 years of age for selected conditions, precautions do apply. What side effects may I notice from receiving this medicine? Side effects that you should report to your doctor or health critical care unit nurse as soon as possible: allergic reactions like skin rash, itching or hives, swelling of the face, lips, or tongue breathing problems fever or sore throat redness, blistering, peeling or loosening of the skin, including inside the mouth trouble passing urine or change in the amount of urine unusual bleeding or bruising unusually weak or tired yellowing of the eyes or skin Side effects that usually do not require medical attention (report to your doctor or health critical care unit nurse if they continue or are bothersome): headache nausea, stomach upset What may interact with this medicine? alcohol imatinib isoniazid other medicines with acetaminophen What if I miss a dose? If you miss a dose, take it as soon as you can. If it is almost time for your next dose, take only that dose. Do not take double or extra doses. Where should I keep my medicine? Keep out of reach of children. Store at room temperature between 20 and 25 degrees C (68 and 77 degrees F). Protect from moisture and heat. Throw away any unused medicine after the expiration date. What should I tell my health care provider before I take this medicine? They need to know if you have any of these conditions: if you frequently drink alcohol containing drinks liver disease an unusual or allergic reaction to acetaminophen, other medicines, foods, dyes or preservatives or trying to get breast-feeding What should I watch for while using this medicine? Tell your doctor or health critical care unit nurse if the pain lasts more than 10 days (5 days for children), if it gets worse, or if there is a new or different kind of pain. Also, check with your doctor if a fever lasts for more than 3 days. Do not take other medicines that contain acetaminophen with this medicine. Always read labels carefully. If you have questions, ask your doctor or pharmacist. If you take too much acetaminophen get medical help right away. Too much acetaminophen can be very dangerous and cause liver damage. Even if you do not have symptoms, it is important to get help right away. You have been given the following additional information: Pyelonephritis, Female (Adult) Ondansetron Oral disintegrating tablet Tramadol Hydrochloride Oral tablet Ciprofloxacin Hydrochloride Oral tablet Acetaminophen Oral tablet No driving or operating machinery while taking medication. (Electronically signed by Anthony Velez MD 08/25/2016 9:23)
--- NOTE | 2016-08-25 09:24 | ED MAR SUMMARY ---
..... Medication Administration Record [facility] [address] [place] [address] Patient: TRISTIN WESLEY Visit ID: [id number] 21y, F Weight: 90.7 kg Height/Length: 64 in BMI: 34.3 ALLERGIES: Ibuprofen Start 00:04 08/25/2016 Xiomara Delacruz R.N. Medication Administered: IV NS (SALINE), Dose: IV Fluids over 1 hour(s), Rate: 1000 mL/hr, Dispensed: 1000 mL bag, Site: #1 right AC. Medication Ordered: IV NS : initial bolus 1000 mL (1000 mL/hr), then 150 mL/hr for 4h (NOW); Urgent. Given 01:09 08/25/2016 Xiomara Delacruz R.N. Medication Administered: LEVOFLOXACIN [PO], Dose: 750 mg PO. Medication Ordered: Levofloxacin PO 750 mg (NOW).
--- NOTE | 2016-08-25 09:24 | ED MED RECONCILIATION SUMMARY ---
Patient: TRISTIN WESLEY Medication Reconciliation Report [facility] VisitID: [id number] [address] [place] [address] 21y, F Registration Date/Time: 08/24/2016 Weight: 90.7 kg Height/Length: 64 in. BMI: 34.3 ALLERGIES: Ibuprofen The patient's Home Medications are listed below: THE FOLLOWING MEDICATIONS NEED TO BE RECONCILED: Tylenol Oral The source(s) of the original Home Medication information: patient The following Medications were given to the patient in the Emergency Department: IV NS IV Fluids bolus 0, then 1000 mL/hr, administered: 08/25/2016 12:04:00 AM Levofloxacin [PO] PO 750 mg, administered: 08/25/2016 1:09:00 AM The following Medications were prescribed to the patient: Acetaminophen (available over the counter): take according to label instructions. -- Anthony Velez MD Zofran 4 mg: Take 1 orally every six hours as needed for nausea/vomiting. Dispense ten (10). No refills. Substitution is permissible. -- Anthony Velez MD Ultram 50 mg: take 1-2 orally every 6 hours as needed for pain. Dispense fifteen (15). No refills. Substitution is permissible. -- Anthony Velez MD Cipro 500 mg: take 1 tab orally every 12 hours for 10 days. No refills. Substitution is permissible.(18 pills to finish the course started in the ER) -- Anthony Velez MD
--- NOTE | 2016-08-25 09:24 | ED MED RECONCILIATION SUMMARY ---
Patient: TRISTIN WESLEY Medication Reconciliation Report [facility] VisitID: [id number] [address] [place] [address] 21y, F Registration Date/Time: 08/24/2016 Weight: 90.7 kg Height/Length: 64 in. BMI: 34.3 ALLERGIES: Ibuprofen The patient's Home Medications are listed below: THE FOLLOWING MEDICATIONS NEED TO BE RECONCILED: Tylenol Oral The source(s) of the original Home Medication information: patient The following Medications were given to the patient in the Emergency Department: IV NS IV Fluids bolus 0, then 1000 mL/hr, administered: 08/25/2016 12:04:00 AM Levofloxacin [PO] PO 750 mg, administered: 08/25/2016 1:09:00 AM The following Medications were prescribed to the patient: Acetaminophen (available over the counter): take according to label instructions. -- Anthony Velez MD Zofran 4 mg: Take 1 orally every six hours as needed for nausea/vomiting. Dispense ten (10). No refills. Substitution is permissible. -- Anthony Velez MD Ultram 50 mg: take 1-2 orally every 6 hours as needed for pain. Dispense fifteen (15). No refills. Substitution is permissible. -- Anthony Velez MD Cipro 500 mg: take 1 tab orally every 12 hours for 10 days. No refills. Substitution is permissible.(18 pills to finish the course started in the ER) -- Anthony Velez MD
--- NOTE | 2016-08-25 09:24 | ED MAR SUMMARY ---
..... Medication Administration Record [facility] [address] [place] [address] Patient: TRISTIN WESLEY Visit ID: [id number] 21y, F Weight: 90.7 kg Height/Length: 64 in BMI: 34.3 ALLERGIES: Ibuprofen Start 00:04 08/25/2016 Xiomara Delacruz R.N. Medication Administered: IV NS (SALINE), Dose: IV Fluids over 1 hour(s), Rate: 1000 mL/hr, Dispensed: 1000 mL bag, Site: #1 right AC. Medication Ordered: IV NS : initial bolus 1000 mL (1000 mL/hr), then 150 mL/hr for 4h (NOW); Urgent. Given 01:09 08/25/2016 Xiomara Delacruz R.N. Medication Administered: LEVOFLOXACIN [PO], Dose: 750 mg PO. Medication Ordered: Levofloxacin PO 750 mg (NOW).
== END 2016-08-25 01:20 | disposition home or self-care (01) ==
LOC: ED SRH 23:01
DX: O23.01 Infections of kidney in pregnancy, first trimester (principal); Z3A.01 Less than 8 weeks gestation of pregnancy; F17.210 Nicotine dependence, cigarettes, uncomplicated; Z88.8 Allergy status to other drugs, medicaments and biological substances
CPT/HCPCS: 90004; 90065; 90074; 90100; 90469; 92031; 92235; 92530; 92760; 92761; 92762; 92763; 92764; 92765; 92766; 92767; 93070; 95059